=== PATIENT | female | born 1980 | race Hispanic/Latino ===

== ENCOUNTER 2017-03-06 21:41 | Emergency (ER) | payer OTHER ==
[2017-03-06 21:44] VITALS: BMI 23.9
[2017-03-06 21:49] VITALS: RESP 16; TEMP 98.6; O2SAT 100
--- NOTE | 2017-03-06 22:08 | ED PDOC ---
Arrival/HPI - General Chief Complaint: Needle Stick Time Seen by Provider: 03/06/17 21:45 Historian: Patient - History of Present Illness Narrative History of Present Illness (Text): 03/06/17 22:00 Jennifer Lockhart is a 37 year old female who presents to the Emergency department complaining of a needlestick to the left great toe while at work today. Patient denies any weakness/numbness/tingling in the extremity, redness/ swelling to the area, or any other complaints. Patient states tetanus is up to date. Time/Duration: Other (today) Symptom Course: Unchanged Activities at Onset: Light Context: Work Past Medical History - Provider Review Nursing Documentation Reviewed: Yes - Reproductive Menopause: No - Cardiac Hx Cardiac Disorders: No - Pulmonary Hx Respiratory Disorders: No - Neurological Hx Neurological Disorder: No - HEENT Hx HEENT Disorder: No - Renal Hx Renal Disorder: No - Endocrine/Metabolic Hx Hypothyroidism: Yes - Hematological/Oncological Hx Blood Disorders: No - Integumentary Hx Dermatological Disorder: No - Musculoskeletal/Rheumatological Hx Musculoskeletal Disorders: No - Gastrointestinal Hx Gastrointestinal Disorders: Yes - Genitourinary/Gynecological Other/Comment: endometriosis - Psychiatric Hx Psychophysiologic Disorder: No Hx Substance Use: No - Surgical History Hx Section: Yes (2011) Hx Tonsillectomy: Yes (2006) Other/Comment: laparoscopy 2006 - Anesthesia Hx Anesthesia: No Hx Anesthesia Reactions: No Hx Malignant Hyperthermia: No Family/Social History - Physician Review Nursing Documentation Reviewed: Yes Family/Social History: No Known Family HX Smoking Status: Never Smoked Hx Alcohol Use: Yes Frequency of alcohol use: Socially Hx Substance Use: No Allergies/Home Meds Allergies/Adverse Reactions: Allergies Penicillins Adverse Reaction (Verified 03/06/17 22:02) ANAPHYLAXIS Review of Systems - Physician Review All systems were reviewed & negative as marked: Yes - Review of Systems Constitutional: Normal. absent: Fevers Eyes: Normal ENT: Normal Respiratory: Normal. absent: SOB, Cough Cardiovascular: Normal. absent: Chest Pain Gastrointestinal: Normal. absent: Abdominal Pain, Diarrhea, Nausea, Vomiting Genitourinary Female: Normal. absent: Dysuria, Frequency, Hematuria, Urine Output Changes Musculoskeletal: Normal. absent: Back Pain, Neck Pain Skin: Other (+needlestick) Neurological: Normal. absent: Headache, Dizziness Endocrine: Normal Hemo/Lymphatic: Normal Psychiatric: Normal Physical Exam Vital Signs Reviewed: Yes Vital Signs Temp Pulse Resp BP Pulse Ox 03/06/17 22:18 64 16 112/70 100 03/06/17 21:44 98.6 F 80 16 110/70 100 Temperature: Afebrile Blood Pressure: Normal Pulse: Regular Respiratory Rate: Normal Appearance: Positive for: Well-Appearing, Non-Toxic, Comfortable Pain Distress: None Mental Status: Positive for: Alert and Oriented X 3 - Systems Exam Head: Present: Atraumatic, Normocephalic Pupils: Present: PERRL Extroacular Muscles: Present: EOMI Conjunctiva: Present: Normal Upper Extremity: Present: Normal Inspection. No: Cyanosis, Edema Lower Extremity: Present: NORMAL PULSES, Normal ROM, Neurovascularly Intact, Capillary Refill < 2 s, Other (No wound noted to left great toe). No: Edema, Tenderness, Swelling, Erythema Neurological: Present: GCS=15, CN II-XII Intact, Speech Normal Skin: Present: Warm, Dry, Normal Color. No: Rashes Psychiatric: Present: Alert, Oriented x 3, Normal Insight, Normal Concentration Medical Decision Making ED Course and Treatment: 03/06/17 22:00 Impression: 37 year old female complaining of left great toe needlestick. Plan: -- Hepatitis panel -- Reassess and disposition Progress Notes: No wound noted to left great toe. Reports tetanus vaccinations are up to date. Pt refused HIV panel and hepatitis prophylaxis. Hepatitis panel ordered. - Scribe Statement The provider has reviewed the documentation as recorded by the Scribe Monserrat Campos All medical record entries made by the Scribe were at my direction and personally dictated by me. I have reviewed the chart and agree that the record accurately reflects my personal performance of the history, physical exam, medical decision making, and the department course for this patient. I have also personally directed, reviewed, and agree with the discharge instructions and disposition. Disposition/Present on Arrival - Present on Arrival Any Indicators Present on Arrival: No History of DVT/PE: No History of Uncontrolled Diabetes: No Urinary Catheter: No History of Decub. Ulcer: No History Surgical Site Infection Following: None - Disposition Have Diagnosis and Disposition been Completed?: Yes Diagnosis: Needle stick injury Disposition: HOME/ ROUTINE Disposition Time: 22:30 Condition: GOOD Discharge Instructions (ExitCare): Needle Stick Injuries (ED) Additional Instructions: follow up with employee health Referrals: Dillon Villegas MD [Primary Care Provider] - Follow up with primary
[2017-03-06 22:20] VITALS: BP 112/70; PULSE 64
== END 2017-03-06 22:18 | disposition home or self-care (01) ==
LOC: ED 21:41
DX: S99.922A Unspecified injury of left foot, initial encounter (principal); W46.0XXA Contact with hypodermic needle, initial encounter; Y92.9 Unspecified place or not applicable; Y99.0 Civilian activity done for income or pay; E03.9 Hypothyroidism, unspecified; Z88.0 Allergy status to penicillin

== ENCOUNTER 2017-06-12 19:38 | Emergency (ER) | payer OTHER ==
[2017-06-12 19:46] VITALS: RESP 16; TEMP 97.9; O2SAT 100; BMI 24.7
[2017-06-12] MEDS ORDERED: DiphenhydrAMINE 50 mg/ml Inj IVP ONE (19:50)
[2017-06-12] MEDS ORDERED: Sodium Chloride 0.9% 1,000 ML IV SCH (20:00)
[2017-06-12] MEDS ORDERED: HYDROmorphone 1 mg/ml ISec IVP STA (20:46)
--- NOTE | 2017-06-12 21:06 | ED PDOC ---
Arrival/HPI - General Chief Complaint: Headache Time Seen by Provider: 06/12/17 19:38 Historian: Patient - History of Present Illness Narrative History of Present Illness (Text): 06/12/17 19:50 Jnenifer Lockhart is a 37 year old female who presents to the Emergency department complaining of migraine headache since yesterday. Patient reports associated nausea and vomiting. Patient denies any dizziness, vision changes, focal weakness, diarrhea, urinary symptoms, back pain, neck pain, or any other complaints. Time/Duration: Other (yesterday) Symptom Onset: Gradual Symptom Course: Unchanged Activities at Onset: Light Context: Home Past Medical History - Provider Review Nursing Documentation Reviewed: Yes - Infectious Disease Hx of Infectious Diseases: None - Reproductive Menopause: No - Cardiac Hx Cardiac Disorders: No - Pulmonary Hx Respiratory Disorders: No - Neurological Hx Neurological Disorder: No - HEENT Hx HEENT Disorder: No - Renal Hx Renal Disorder: No - Endocrine/Metabolic Hx Hypothyroidism: Yes - Hematological/Oncological Hx Blood Disorders: No - Integumentary Hx Dermatological Disorder: No - Musculoskeletal/Rheumatological Hx Musculoskeletal Disorders: No - Gastrointestinal Hx Gastrointestinal Disorders: Yes - Genitourinary/Gynecological Other/Comment: endometriosis - Psychiatric Hx Psychophysiologic Disorder: No Hx Substance Use: No - Surgical History Hx Section: Yes (2011) Hx Tonsillectomy: Yes (2006) Other/Comment: laparoscopy 2005 - Anesthesia Hx Anesthesia: No Hx Anesthesia Reactions: No Hx Malignant Hyperthermia: No Family/Social History - Physician Review Nursing Documentation Reviewed: Yes Family/Social History: Unknown Family HX Smoking Status: Never Smoked Hx Alcohol Use: Yes Hx Substance Use: No Allergies/Home Meds Allergies/Adverse Reactions: Allergies Penicillins Adverse Reaction (Verified 03/06/17 22:02) ANAPHYLAXIS Home Medications: Home Meds Medication Instructions Recorded Confirmed Levothyroxine Sodium [Unithroid] 150 mcg PO DAILY 06/12/17 06/12/17 Review of Systems - Physician Review All systems were reviewed & negative as marked: Yes - Review of Systems Constitutional: Normal. absent: Fevers Eyes: Normal. absent: Vision Changes ENT: Normal Respiratory: Normal. absent: SOB, Cough Cardiovascular: Normal. absent: Chest Pain Gastrointestinal: Nausea, Vomiting. absent: Abdominal Pain, Diarrhea Genitourinary Female: Normal. absent: Dysuria, Frequency, Hematuria, Urine Output Changes Musculoskeletal: Normal. absent: Back Pain, Neck Pain Skin: Normal. absent: Rash Neurological: Headache. absent: Dizziness, Focal Weakness Endocrine: Normal Hemo/Lymphatic: Normal Psychiatric: Normal Physical Exam Vital Signs Reviewed: Yes Vital Signs Temp Pulse Resp BP Pulse Ox 06/12/17 19:38 97.9 F 92 H 16 124/94 H 100 Temperature: Afebrile Blood Pressure: Normal Pulse: Regular Respiratory Rate: Normal Appearance: Positive for: Well-Appearing, Non-Toxic, Comfortable Pain Distress: None Mental Status: Positive for: Alert and Oriented X 3 - Systems Exam Head: Present: Atraumatic, Normocephalic Pupils: Present: PERRL Extroacular Muscles: Present: EOMI Conjunctiva: Present: Normal Mouth: Present: Moist Mucous Membranes Neck: Present: Normal Range of Motion. No: Meningeal Signs, MIDLINE TENDERNESS , Paraspinal Tenderness Respiratory/Chest: Present: Clear to Auscultation, Good Air Exchange. No: Respiratory Distress, Accessory Muscle Use Cardiovascular: Present: Regular Rate and Rhythm, Normal S1, S2. No: Murmurs Upper Extremity: Present: Normal Inspection. No: Cyanosis, Edema Lower Extremity: Present: Normal Inspection. No: Edema Neurological: Present: GCS=15, CN II-XII Intact, Speech Normal, Motor Func Grossly Intact, Normal Cerebellar Funct, Norm Deep Tendon Reflexes, Memory Normal Skin: Present: Warm, Dry, Normal Color. No: Rashes Psychiatric: Present: Alert, Oriented x 3, Normal Insight, Normal Concentration Medical Decision Making ED Course and Treatment: 06/12/17 19:50 Impression: 37 year old female complaining of migraine headache yesterday. Differential Diagnosis included but are not limited to: migraines Plan: -- Benadryl -- Reglan -- IV fluids -- Reassess and disposition Progress Notes: 06/12/17 23:46 On reevaluation the patient feels better and is in no acute distress. I have discussed the results and plan with the patient, who expresses understanding. Patient given the opportunity to ask question, all questions were answered and there is agreement with the plan to discharge the patient home. Patient is stable for discharge. Patient was instructed to follow up with physician/clinic in 1-2 days or return if symptoms persist/worsen or new concerning symptoms arise. Re-evaluation Time: 23:46 Reassessment Condition: Re-examined, Improved - Medication Orders Current Medication Orders: Sodium Chloride (Sodium Chloride 0.9%) 1,000 mls @ 80 mls/hr IV .[id number] HANANE Last Admin: 06/12/17 20:05 Dose: 80 mls/hr Discontinued Medications Diphenhydramine HCl (Benadryl) 25 mg IVP ONCE ONE Stop: 06/12/17 19:51 Last Admin: 06/12/17 20:05 Dose: 25 mg Hydromorphone HCl (Dilaudid) 1 mg IVP STAT STA Stop: 06/12/17 20:47 Last Admin: 06/12/17 21:16 Dose: 1 mg Metoclopramide HCl (Reglan) 10 mg IVP ONCE ONE Stop: 06/12/17 19:51 Last Admin: 06/12/17 20:05 Dose: 10 mg - Scribe Statement The provider has reviewed the documentation as recorded by the Jakyibprabhakar Campos All medical record entries made by the Jakyibprabhakar were at my direction and personally dictated by me. I have reviewed the chart and agree that the record accurately reflects my personal performance of the history, physical exam, medical decision making, and the department course for this patient. I have also personally directed, reviewed, and agree with the discharge instructions and disposition. Disposition/Present on Arrival - Present on Arrival Any Indicators Present on Arrival: No History of DVT/PE: No History of Uncontrolled Diabetes: No Urinary Catheter: No History of Decub. Ulcer: No History Surgical Site Infection Following: None - Disposition Have Diagnosis and Disposition been Completed?: Yes Diagnosis: Migraine Disposition: HOME/ ROUTINE Disposition Time: 23:46 Patient Problems: Current Active Problems Problem Status Onset Migraine Acute Condition: GOOD Discharge Instructions (ExitCare): Migraine Headache (ED) Forms: [employer] ([employer]) ([place]ayan)
[2017-06-13 04:00] VITALS: BP 126/85; PULSE 84
== END 2017-06-13 00:05 | disposition home or self-care (01) ==
LOC: ED 19:38
DX: G43.909 Migraine, unspecified, not intractable, without status migrainosus (principal)
CPT/HCPCS: 96361; 96374; 96375; 99285; J1170; J1200; J2765; J7040

== ENCOUNTER 2017-12-10 11:50 | Emergency (ER) | payer OTHER ==
[2017-12-10 11:50] VITALS: BMI 24.7
[2017-12-10] MEDS ORDERED: Sodium Chloride 0.9% 1,000 ML IV STA (12:08)
[2017-12-10] MEDS ORDERED: Morphine 2 mg/ml ISec IVP STA (12:08)
--- NOTE | 2017-12-10 12:10 | ED PDOC ---
Arrival/HPI - General Chief Complaint: Headache Time Seen by Provider: 12/10/17 12:07 Historian: Patient - History of Present Illness Narrative History of Present Illness (Text): 12/10/17 12:12 Jennifer Lockhart is a 37 year old female, whose past medical history includes photophobia, hypothyroidism, and endometriosis, who presents to the emergency department complaining of a typical migraine headache since yesterday. Patient notes this is not her worst headache. Patient denies any fever, neck pain, back pain, chest pain or any other complaints. Time/Duration: Other (yesterday) Symptom Onset: Gradual Symptom Course: Unchanged Activities at Onset: Light Context: Home Past Medical History - Provider Review Nursing Documentation Reviewed: Yes - Infectious Disease Hx of Infectious Diseases: None - Cardiac Hx Cardiac Disorders: No - Pulmonary Hx Respiratory Disorders: No - Neurological Hx Neurological Disorder: No - HEENT Hx HEENT Disorder: No - Renal Hx Renal Disorder: No - Endocrine/Metabolic Hx Hypothyroidism: Yes - Hematological/Oncological Hx Blood Disorders: No - Integumentary Hx Dermatological Disorder: No - Musculoskeletal/Rheumatological Hx Musculoskeletal Disorders: No - Gastrointestinal Hx Gastrointestinal Disorders: Yes - Genitourinary/Gynecological Other/Comment: endometriosis - Psychiatric Hx Psychophysiologic Disorder: No Hx Substance Use: No - Surgical History Hx Section: Yes (2011) Hx Tonsillectomy: Yes (2006) Other/Comment: laparoscopy 2005 - Anesthesia Hx Anesthesia: No Hx Anesthesia Reactions: No Hx Malignant Hyperthermia: No Family/Social History - Physician Review Nursing Documentation Reviewed: Yes Family/Social History: Unknown Family HX Smoking Status: Never Smoked Hx Alcohol Use: Yes Hx Substance Use: No Allergies/Home Meds Allergies/Adverse Reactions: Allergies Penicillins Adverse Reaction (Verified 03/06/17 22:02) ANAPHYLAXIS Home Medications: Home Meds Medication Instructions Recorded Confirmed Levothyroxine Sodium [Unithroid] 150 mcg PO DAILY 06/12/17 12/10/17 Codeine/Butalbital/ASA/Caffein 30 mg PO PRN PRN 12/10/17 12/10/17 [Fiorinal with Codeine #3 Cap] Review of Systems - Physician Review All systems were reviewed & negative as marked: Yes - Review of Systems Constitutional: Normal Eyes: Photophobia ENT: Normal Respiratory: Normal. absent: SOB, Cough Cardiovascular: Normal. absent: Chest Pain, Palpitations Gastrointestinal: Normal. absent: Abdominal Pain, Diarrhea, Nausea, Vomiting Genitourinary Female: Normal. absent: Dysuria, Frequency, Hematuria, Urine Output Changes Musculoskeletal: Normal. absent: Back Pain, Neck Pain Skin: Normal. absent: Rash Neurological: Headache. absent: Dizziness Endocrine: Normal Hemo/Lymphatic: Normal Psychiatric: Normal Physical Exam Vital Signs Reviewed: Yes Vital Signs Temp Pulse Resp BP Pulse Ox 12/10/17 13:27 101/55 L 12/10/17 12:26 97.9 F 77 18 122/90 99 Temperature: Afebrile Blood Pressure: Normal Pulse: Regular Respiratory Rate: Normal Appearance: Positive for: Well-Appearing, Non-Toxic, Comfortable Pain Distress: None Mental Status: Positive for: Alert and Oriented X 3 - Systems Exam Head: Present: Atraumatic, Normocephalic Pupils: Present: PERRL Extroacular Muscles: Present: EOMI Conjunctiva: Present: Normal Mouth: Present: Moist Mucous Membranes Neck: Present: Normal Range of Motion. No: Meningeal Signs, MIDLINE TENDERNESS , Paraspinal Tenderness Respiratory/Chest: Present: Clear to Auscultation, Good Air Exchange. No: Respiratory Distress, Accessory Muscle Use, Wheezes Cardiovascular: Present: Regular Rate and Rhythm, Normal S1, S2. No: Murmurs Abdomen: Present: Normal Bowel Sounds. No: Tenderness, Distention, Peritoneal Signs Back: Present: Normal Inspection. No: CVA Tenderness, Midline Tenderness, Paraspinal Tenderness Upper Extremity: Present: Normal Inspection. No: Cyanosis, Edema Lower Extremity: Present: Normal Inspection. No: Edema Neurological: Present: GCS=15, CN II-XII Intact, Speech Normal Skin: Present: Warm, Dry, Normal Color. No: Rashes Psychiatric: Present: Alert, Oriented x 3, Normal Insight, Normal Concentration Medical Decision Making ED Course and Treatment: 12/10/17 12:18 Impression: 37 year old female presents to the ed complaining of headache since yesterday. Plan: -- Reglan -- Morphine -- Sodium Chloride -- Reassess and disposition Prior Visits: Notes and results from previous visits were reviewed. Patient presented to the emergency department on 06/12/17 complaining of a headache. Patient was discharged home. 12/10/17 13:29 Re-evaluation: On reevaluation the patient feels better and is in no acute distress. I have discussed the results and plan with the patient, who expresses understanding. Patient given the opportunity to ask question, all questions were answered and there is agreement with the plan to discharge the patient home. Patient is stable for discharge. Patient was instructed to follow up with physician/clinic in 1-2 days or return if symptoms persist/worsen or new concerning symptoms arise. - Medication Orders Current Medication Orders: Discontinued Medications Sodium Chloride (Sodium Chloride 0.9%) 1,000 mls @ 999 mls/hr IV .[id number] STA Stop: 12/10/17 13:08 Last Admin: 12/10/17 12:45 Dose: 999 mls/hr eMAR Start Stop Document 12/10/17 12:45 MS (Rec: 12/10/17 12:45 MS [id number]) Intravenous Solution Start Date 12/10/17 Start Time 12:45 End Date 12/10/17 End time 13:45 Total Infusion Time 60 Metoclopramide HCl (Reglan) 20 mg IVPB STAT STA Stop: 12/10/17 12:09 Last Admin: 12/10/17 12:44 Dose: 20 mg eMAR Start Stop Document 12/10/17 12:44 MS (Rec: 12/10/17 12:44 MS [id number]) Intravenous Solution Start Date 12/10/17 Start Time 12:44 End Date 12/10/17 End time 13:44 Total Infusion Time 60 Morphine Sulfate (Morphine) 2 mg IVP STAT STA Stop: 12/10/17 12:09 Last Admin: 12/10/17 12:43 Dose: 2 mg MAR Pain Assessment Document 12/10/17 12:43 MS (Rec: 12/10/17 12:44 MS [id number]) Pain Reassessment Is this a pain reassessment? No Sleep Is patient sleeping during reassessment? 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 I have reviewed the chart and agree that the record accurately reflects my personal performance of the history, physical exam, medical decision making, and the department course for this patient. I have also personally directed, reviewed, and agree with the discharge instructions and disposition. Disposition/Present on Arrival - Present on Arrival Any Indicators Present on Arrival: No History of DVT/PE: No History of Uncontrolled Diabetes: No Urinary Catheter: No History of Decub. Ulcer: No History Surgical Site Infection Following: None - Disposition Have Diagnosis and Disposition been Completed?: Yes Diagnosis: Migraine Disposition: HOME/ ROUTINE Disposition Time: 13:20 Condition: IMPROVED Discharge Instructions (ExitCare): Migraine Headaches in Adults Additional Instructions: Thank you for letting us take care of you today. The emergency medical care you received today was directed at your acute symptoms. If you were prescribed any medication, please fill it and take as directed. It may take several days for your symptoms to resolve. Return to the Emergency Department if your symptoms worsen, do not improve, or if you have any other problems. Please contact your doctor or call one of the physicians/clinics you have been referred to that are listed on the Patient Visit Information form that is included in your discharge packet. Bring any paperwork you were given at discharge with you along with any medications you are taking to your follow up visit. Our treatment cannot replace ongoing medical care by a primary care provider (PCP) outside of the emergency department. Thank you for allowing the [facility] team to be part of your care today. Follow up with your doctor this week for re-evaluation. Referrals: Dillon Villegas MD [Primary Care Provider] - Follow up with primary Forms: [employer] ([place])
[2017-12-10 13:27] VITALS: BP 101/55; PULSE 77; RESP 18; TEMP 97.9; O2SAT 99
== END 2017-12-10 13:30 | disposition home or self-care (01) ==
LOC: ED 11:50
DX: G43.909 Migraine, unspecified, not intractable, without status migrainosus (principal); E03.9 Hypothyroidism, unspecified
CPT/HCPCS: 96365; 96375; 99285; J2270; J2765; J7040

== ENCOUNTER 2018-01-01 23:37 | Emergency (ER) | payer OTHER ==
[2018-01-01 23:38] VITALS: BMI 24.7
[2018-01-01] MEDS ORDERED: DiphenhydrAMINE 50 mg/ml Inj IVP STA (23:53)
[2018-01-01] MEDS ORDERED: Sodium Chloride 0.9% 1,000 ML IV STA (23:55)
[2018-01-02] MEDS ORDERED: Morphine 4 mg/ml ISec IVP STA (00:34)
--- NOTE | 2018-01-02 01:01 | ED PDOC ---
Arrival/HPI <YolisRaul - Last Filed: 01/02/18 02:03> - General Historian: Patient - History of Present Illness Time/Duration: 4-6 hours Symptom Onset: Gradual Symptom Course: Worsening Quality: Aching, Burning Activities at Onset: Rest <RamanaPeter - Last Filed: 01/02/18 04:00> - General Chief Complaint: Abdominal Pain Time Seen by Provider: 01/01/18 23:53 - History of Present Illness Narrative History of Present Illness (Text): 01/02/18 00:55 Patient is a 38F with a PMH of endometriosis, migraines and GERD who comes to the ED with a CC of VASQUEZ, abdominal pain and vomiting. Patient states she has felt this way since 3 pm. Turning off the lights makes the headache better. Takes fioricet at home that usually helps the headache but did not help today. Denies any blood in the vomit. Describes the pain in her belly as burning and located in the epigastrum and radiates to the left flank. Pain has been constant since its onset. Patient was seen at [facility] earlier tonight, they gave her medication for the pain but did not draw labs. Denies any previous episodes like this. Denies chest pain, SOB, LOC, fever, chills, diarrhea. (Peter Boles) Past Medical History - Provider Review Nursing Documentation Reviewed: Yes <YolisRaul - Last Filed: 01/02/18 02:03> - Infectious Disease Hx of Infectious Diseases: None - Cardiac Hx Cardiac Disorders: No - Pulmonary Hx Respiratory Disorders: No - Neurological Hx Neurological Disorder: No - HEENT Hx HEENT Disorder: No - Renal Hx Renal Disorder: No - Endocrine/Metabolic Hx Hypothyroidism: Yes - Hematological/Oncological Hx Blood Disorders: No - Integumentary Hx Dermatological Disorder: No - Musculoskeletal/Rheumatological Hx Musculoskeletal Disorders: No - Gastrointestinal Hx Gastrointestinal Disorders: Yes - Genitourinary/Gynecological Other/Comment: endometriosis - Psychiatric Hx Psychophysiologic Disorder: No Hx Substance Use: No - Surgical History Hx Section: Yes (2011) Hx Tonsillectomy: Yes (2006) Other/Comment: laparoscopy 2006 - Anesthesia Hx Anesthesia: No Hx Anesthesia Reactions: No Hx Malignant Hyperthermia: No <Peter Boles - Last Filed: 01/02/18 04:00> Family/Social History - Physician Review Nursing Documentation Reviewed: Yes Family/Social History: Unknown Family HX <Raul Lagos - Last Filed: 01/02/18 02:03> Family/Social History: Unknown Family HX Smoking Status: Never Smoked Hx Alcohol Use: Yes Hx Substance Use: No <Peter Boles Last Filed: 01/02/18 04:00> Allergies/Home Meds <Rual Lagos - Last Filed: 01/02/18 02:03> <Peter Boles Last Filed: 01/02/18 04:00> Allergies/Adverse Reactions: Allergies Penicillins Adverse Reaction (Verified 01/01/18 23:52) ANAPHYLAXIS Review of Systems - Physician Review All systems were reviewed & negative as marked: Yes <Raul Lagos Last Filed: 01/02/18 02:03> - Review of Systems Constitutional: absent: Fevers, Night Sweats Eyes: Photophobia. absent: Vision Changes ENT: Normal Respiratory: Normal Cardiovascular: absent: Chest Pain, Syncope Gastrointestinal: Abdominal Pain, Diarrhea, Nausea, Vomiting. absent: Constipation, Hematemesis Genitourinary Female: Normal Musculoskeletal: Normal Skin: Normal Neurological: Headache Endocrine: Normal Hemo/Lymphatic: Normal Psychiatric: Normal <Peter Boles Last Filed: 01/02/18 04:00> Physical Exam Temperature: Afebrile Blood Pressure: Normal Pulse: Regular Respiratory Rate: Normal Appearance: Positive for: Uncomfortable Pain Distress: Moderate Mental Status: Positive for: Alert and Oriented X 3 - Systems Exam Head: Present: Atraumatic, Normocephalic Pupils: Present: PERRL Extroacular Muscles: Present: EOMI Conjunctiva: Present: Normal Mouth: Present: Moist Mucous Membranes Respiratory/Chest: Present: Clear to Auscultation, Good Air Exchange. No: Respiratory Distress, Accessory Muscle Use Cardiovascular: Present: Regular Rate and Rhythm, Normal S1, S2. No: Murmurs Abdomen: Present: Normal Bowel Sounds. No: Tenderness, Distention, Peritoneal Signs Upper Extremity: Present: Normal Inspection. No: Cyanosis, Edema Lower Extremity: Present: Normal Inspection. No: Edema Neurological: Present: GCS=15, CN II-XII Intact, Speech Normal Skin: Present: Warm, Dry, Normal Color. No: Rashes Psychiatric: Present: Alert, Oriented x 3 <Peter Boles - Last Filed: 01/02/18 04:00> Vital Signs Temp Pulse Resp BP Pulse Ox 01/02/18 00:08 98.1 F 90 17 125/75 96 01/01/18 23:49 98.1 F 81 17 100 Medical Decision Making <Raul Lagos - Last Filed: 01/02/18 02:03> <Peter Boles - Last Filed: 01/02/18 04:00> ED Course and Treatment: Impression: Pt seen and evaluated with medical record transcriber. Pt, whose past medical history includes endometriosis and migraines, presented for headache, abdominal pain, and vomiting. Aware and agree with HPI, clinical findings, plan, and management. Plan: -- Labs -- Urinalysis -- IV fluids -- Reglan -- Pepcid -- Benadryl -- Morphine -- Reassess and disposition (Raul Lagos) 01/02/18 01:26 Patient presents with nausea, migraine and abdominal pain Relgan, benadryl, morphine, pepcid Labs 01/02/18 03:53 GB US negative for acute damir Patient feeling much better, pain resolved, no longer nausea stable for D/c, follow up with sole tier, patient states she has an appt set up (Peter Boles) - Lab Interpretations Lab Results: 01/02/18 00:20 01/02/18 00:20 Lab Results 01/02/18 00:20: Sodium 138, Potassium 3.8, Chloride 100, Carbon Dioxide 30, Anion Gap 12, BUN 13, Creatinine 0.8, Est GFR ( Amer) > 60, Est GFR (Non- Af Amer) > 60, Random Glucose 114 H, Calcium 9.5, Magnesium 2.5 H, Total Bilirubin 0.7, AST 27, ALT 28, Alkaline Phosphatase 63, Total Protein 7.7, Albumin 4.2, Globulin 3.4, Albumin/Globulin Ratio 1.2 01/02/18 00:20: WBC 7.2, RBC 4.53, Hgb 13.6, Hct 40.2, MCV 88.7 D, MCH 30.0, MCHC 33.8, RDW 12.7, Plt Count 189, MPV 11.4 H, Gran % 78.0 H, Lymph % (Auto) 9.7 L, [place] % (Auto) 10.7 H, Eos % (Auto) 1.5, Baso % (Auto) 0.1, Gran # 5.61, Lymph # (Auto) 0.7 L, [place] # (Auto) 0.8 H, Eos # (Auto) 0.1, Baso # (Auto) 0.01 - RAD Interpretation Radiology Orders: 01/02/18 01:36 GALL BLADDER [US] Stat - Medication Orders Current Medication Orders: Discontinued Medications Diphenhydramine HCl (Benadryl) 50 mg IVP STAT STA Stop: 01/01/18 23:54 Last Admin: 01/02/18 00:28 Dose: 50 mg IVP Administration Document 01/02/18 00:28 Danielle (Rec: 01/02/18 00:28 [id number] Charges for Administration # of IVP Administrations 1 Famotidine (Pepcid) 20 mg IVP STAT STA Stop: 01/01/18 23:54 Last Admin: 01/02/18 00:29 Dose: 20 mg IVP Administration Document 01/02/18 00:29 Danielle (Rec: 01/02/18 00:29 [id number] Charges for Administration # of IVP Administrations 1 Sodium Chloride (Sodium Chloride 0.9%) 1,000 mls @ 999 mls/hr IV .Q1H1M STA Stop: 01/02/18 00:55 Last Admin: 01/02/18 00:29 Dose: 999 mls/hr eMAR Start Stop Document 01/02/18 00:29 Danielle (Rec: 01/02/18 00:29 [id number] Intravenous Solution Start Date 01/02/18 Start Time 00:29 Metoclopramide HCl (Reglan) 10 mg IVP STAT STA Stop: 01/01/18 23:54 Last Admin: 01/02/18 00:28 Dose: 10 mg IVP Administration Document 01/02/18 00:28 Danielle (Rec: 01/02/18 00:28 [id number]) Charges for Administration # of IVP Administrations 1 Morphine Sulfate (Morphine) 4 mg IVP STAT STA Stop: 01/02/18 00:35 Last Admin: 01/02/18 01:07 Dose: 4 mg MAR Pain Assessment Document 01/02/18 01:07 [facility] (Rec: 01/02/18 01:07 [facility] [id number]) Pain Reassessment Is this a pain reassessment? No Sleep Is patient sleeping during reassessment? No Presence of Pain Presence of Pain Yes Pain Scale Used Pain Scale Used Numeric Location Pain Location Body Site Abdomen Description Description Sharp Intensity of Pain at present 10 Acceptable Level of Pain 0 Pain Behavior Irritability Rubbing Site Aggravating Factors ADL's IVP Administration Document 01/02/18 01:07 [facility] (Rec: 01/02/18 01:07 [facility] [id number]) Charges for Administration # of IVP Administrations 1 - PA / PANEL FITTER / Resident Statement / has reviewed & agrees with the documentation as recorded. / has examined the patient and agrees with the treatment plan. <Peter Boles - Last Filed: 01/02/18 04:00> Disposition/Present on Arrival <Raul Lagos - Last Filed: 01/02/18 02:03> - Present on Arrival Any Indicators Present on Arrival: No History of DVT/PE: No History of Uncontrolled Diabetes: No Urinary Catheter: No History of Decub. Ulcer: No History Surgical Site Infection Following: None - Disposition Have Diagnosis and Disposition been Completed?: Yes Disposition Time: 03:54 Patient Plan: Discharge <Peter Boles - Last Filed: 01/02/18 04:00> - Disposition Diagnosis: Gastritis, Migraine Disposition: HOME/ ROUTINE Condition: STABLE Additional Instructions: Please follow up with your primary care provider w/in one week please follow up with sole tier. Keep your upcoming appointment Please follow up with your neurologist for Migraine Please take Reglan w/ Benadryl for persistent migraine Please take Pepcid as prescribed for GERD symptoms. Prescriptions: Famotidine [Pepcid] 20 mg PO DAILY #30 tab Referrals: Dillon Villegas MD [Primary Care Provider] - Follow up with primary Forms: [employer] (Cymro)
[2018-01-02 01:13] LABS: BASO # 0.01 K/mm3 (0.0-2.0); BASO % 0.1 % (0.0-3.0); EOS # 0.1 (0.0-0.7); EOS % 1.5 % (1.5-5.0); GRAN # 5.61 (1.4-6.5); HEMOGLOBIN 13.6 g/dL (12.0-16.0); LYMPH # 0.7 (1.2-3.4); LYMPH % 9.7 % (22.0-35.0); MEAN CORPUSCULAR HGB CONC 33.8 g/dl (31.0-37.0); MEAN PLATELET VOLUME 11.4 fl (7.0-11.0); MONO # 0.8 (0.1-0.6); MONO % 10.7 % (1.0-6.0); RBC 4.53 10^6/uL (3.5-6.1); RED CELL DISTRIBUTION WIDTH 12.7 % (11.5-14.5); WHITE BLOOD COUNT 7.2 10^3/ul (4.5-11.0)
[2018-01-02 01:15] LABS: MEAN CELL VOLUME 88.7 fl (80.0-105.0)
[2018-01-02 01:46] LABS: ALB/GLOB RATIO 1.2 (1.1-1.8); ALBUMIN 4.2 g/dL (3.0-4.8); ALT/SGPT 28 U/L (7-56); AST/SGOT 27 U/L (14-36); BLOOD UREA NITROGEN 13 mg/dL (7-21); CALCIUM 9.5 mg/dL (8.4-10.5); GFR AFRICAN-AMERICAN > 60; GFR NON-AFRICAN AMERICAN > 60
--- NOTE | 2018-01-02 03:36 | US ---
EXAM: US Abdomen Limited, Right Upper Quadrant CLINICAL HISTORY: 38 years old, female; Pain; Abdominal pain; Generalized; Additional info: Ruq pain TECHNIQUE: Real-time ultrasound of the right upper quadrant with image documentation. COMPARISON: No relevant prior studies available. FINDINGS: Liver: Normal echogenicity. No mass. No intrahepatic bile duct dilatation. Gallbladder: No gallstones. No wall thickening. No pericholecystic fluid. No sonographic Butcher's sign. Common bile duct: No dilatation. No stones. Pancreas: Unremarkable as visualized. Right kidney: Normal echogenicity. No hydronephrosis. IMPRESSION: 1.No acute findings.
[2018-01-02 04:18] VITALS: RESP 18; O2SAT 97
[2018-01-02 04:19] VITALS: BP 119/73; PULSE 77; TEMP 98.3
== END 2018-01-02 04:22 | disposition home or self-care (01) ==
LOC: ED 23:37
DX: K29.70 Gastritis, unspecified, without bleeding (principal); G43.909 Migraine, unspecified, not intractable, without status migrainosus
CPT/HCPCS: 76705; 80053; 83735; 85025; 96361; 96374; 96375; 99285; J1200; J2270; J2765; J7040

== ENCOUNTER 2018-08-15 15:45 | Emergency (ER) | payer OTHER ==
[2018-08-15 15:48] VITALS: RESP 17; O2SAT 100; BMI 25.2
--- NOTE | 2018-08-15 16:51 | ED PDOC ---
Arrival/HPI - General Chief Complaint: Back Pain Time Seen by Provider: 08/15/18 15:49 Historian: Patient - History of Present Illness Narrative History of Present Illness (Text): 08/15/18 18:22 38-year-old female presents today with left-sided back pain status post injury. 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 Incident occurred prior to arrival. Patient denies numbness or tingling in the extremity. Patient describes a shooting pain in the low back radiating into the left hip. She denies bladder or bowel incontinence. Patient states she also has some pain in the left upper back which she describes as a achy pain. No medications were taken for pain. No other complaints Past Medical History - Provider Review Nursing Documentation Reviewed: Yes - Travel History Have you recently traveled outside [place] w/in the past 3 mons?: No - Infectious Disease Hx of Infectious Diseases: None - Cardiac Hx Cardiac Disorders: No - Pulmonary Hx Respiratory Disorders: No - Neurological Hx Neurological Disorder: Yes Hx Migraine: Yes - HEENT Hx HEENT Disorder: No - Renal Hx Renal Disorder: No - Endocrine/Metabolic Hx Endocrine Disorders: Yes Hx Hypothyroidism: Yes - Hematological/Oncological Hx Blood Disorders: No - Integumentary Hx Dermatological Disorder: No - Musculoskeletal/Rheumatological Hx Musculoskeletal Disorders: No - Gastrointestinal Hx Gastrointestinal Disorders: Yes Hx Gastroesophageal Reflux: Yes - Genitourinary/Gynecological Hx Genitourinary Disorders: Yes Other/Comment: endometriosis - Psychiatric Hx Psychophysiologic Disorder: No Hx Substance Use: No - Surgical History Hx Section: Yes (2011) Hx Tonsillectomy: Yes (2006) Other/Comment: laparoscopy 2006 - Anesthesia Hx Anesthesia: No Hx Anesthesia Reactions: No Hx Malignant Hyperthermia: No Family/Social History - Physician Review Nursing Documentation Reviewed: Yes Family/Social History: Unknown Family HX Smoking Status: Never Smoked Hx Alcohol Use: Yes Hx Substance Use: No Allergies/Home Meds Allergies/Adverse Reactions: Allergies Penicillins Adverse Reaction (Verified 08/15/18 15:47) ANAPHYLAXIS Home Medications: Home Meds Medication Instructions Recorded Confirmed Levothyroxine [Synthroid] 112 mcg PO DAILY 08/15/18 08/15/18 Review of Systems - Review of Systems Constitutional: absent: Fatigue, Fevers Respiratory: absent: SOB, Cough Cardiovascular: absent: Chest Pain, Palpitations Gastrointestinal: absent: Abdominal Pain, Nausea, Vomiting Genitourinary Female: absent: Dysuria, Frequency, Hematuria Musculoskeletal: Arthralgias, Back Pain. absent: Neck Pain Skin: absent: Rash, Pruritis Neurological: absent: Headache, Dizziness Psychiatric: absent: Anxiety, Depression Physical Exam Vital Signs Reviewed: Yes Vital Signs Temp Pulse Resp BP Pulse Ox 08/15/18 15:48 98.4 F 71 17 110/70 100 Temperature: Afebrile Blood Pressure: Normal Pulse: Regular Respiratory Rate: Normal Appearance: Positive for: Well-Appearing, Non-Toxic, Comfortable Pain Distress: None Mental Status: Positive for: Alert and Oriented X 3 - Systems Exam Head: Present: Atraumatic Mouth: Present: Moist Mucous Membranes Neck: Present: Normal Range of Motion Respiratory/Chest: Present: Clear to Auscultation, Good Air Exchange. No: Respiratory Distress, Accessory Muscle Use Cardiovascular: Present: Regular Rate and Rhythm, Normal S1, S2. No: Murmurs Abdomen: No: Tenderness, Distention, Peritoneal Signs, Rebound, Guarding Back: Present: Normal Inspection, Paraspinal Tenderness (+ left sided lumbar paraspinal tenderness), Pain with Leg Raise. No: CVA Tenderness, Midline Tenderness Upper Extremity: Present: Normal Inspection, Normal ROM Lower Extremity: Present: Normal Inspection, Normal ROM, Neurovascularly Intact, Other (+ ttp over left sciatic foramen. ) Neurological: Present: GCS=15, Speech Normal Skin: Present: Warm, Dry, Normal Color. No: Rashes Psychiatric: Present: Alert, Oriented x 3 Medical Decision Making ED Course and Treatment: 08/15/18 18:29 Patient nontoxic well-appearing in no distress with stable vital signs. Toradol and Valium given for pain Patient reassessment: Feeling better with medications ambulating with a steady gait. Muscle strength 5 out of 5 bilaterally. I advised to followup with the orthopedist within the next 2 days. Return if symptoms worsen persist or new symptoms develop Patient was advised to follow-up with employee health tomorrow Patient verbalizes understanding of discharge instructions and need for immediate followup. all aspects of this case were discussed the attending of record. Impression: Back pain Motrin every 6 hours as needed for pain valium one tablet every 8 hours as needed for muscle spasms: May cause drowsiness Follow up with employee health tomorrow . Followup with the orthopedist/back specialist within the next 2 days Followup with primary care physician within the next 2 days Return if symptoms worsen persist or if new symptoms develop - Medication Orders Current Medication Orders: Discontinued Medications Diazepam (Valium) 5 mg PO ONCE ONE Stop: 08/15/18 16:04 Ketorolac Tromethamine (Toradol) 60 mg IM STAT STA Stop: 08/15/18 16:04 Disposition/Present on Arrival - Present on Arrival Any Indicators Present on Arrival: No History of DVT/PE: No History of Uncontrolled Diabetes: No Urinary Catheter: No History of Decub. Ulcer: No History Surgical Site Infection Following: None - Disposition Have Diagnosis and Disposition been Completed?: Yes Diagnosis: Back pain Disposition: HOME/ ROUTINE Disposition Time: 16:51 Patient Plan: Discharge Condition: GOOD Discharge Instructions (ExitCare): Low Back Pain (DC), Sciatica Exercises Additional Instructions: Motrin every 6 hours as needed for pain valium one tablet every 8 hours as needed for muscle spasms: May cause drowsiness Follow up with employee health tomorrow . Followup with the orthopedist/back specialist within the next 2 days Followup with primary care physician within the next 2 days Return if symptoms worsen persist or if new symptoms develop [facility] Employee Regarding your Work Related Injury, you are instructed to do all of the following by next day: 1. Notify [facility] Employee Health Department of the sustained injury and arrange for any follow-up appointments if needed during the next business day. If the office is closed or no answer is received, please leave a detailed voice message. Message should include your full name, department and assurance services manager health care, date of injury, date of ED visit if applicable. Employee Health can be reached at [phone]. 2. If there is time lost, notify [facility] Human Resources Department of the work related injury the next business day at [phone]. Prescriptions: diaZEpam [Valium] 2 mg PO Q8H PRN #6 tab PRN Reason: muscle spasms Ibuprofen [Motrin] 600 mg PO Q6H PRN #20 tab PRN Reason: pain/fever reduction Referrals: Serjio Mitchell MD [Staff Provider] - Follow up with primary Opal Dickson MD [Medical Doctor] - Follow up with primary Pa[facility] Phys[facility]otherap[facility] [Outside] - Follow up with primary Forms: [employer] (Dutch), WORK NOTE
[2018-08-15 19:29] VITALS: BP 112/78; PULSE 80; TEMP 98.2
== END 2018-08-15 18:20 | disposition home or self-care (01) ==
LOC: ED 15:45
DX: M54.5 Low back pain (principal); E03.9 Hypothyroidism, unspecified
CPT/HCPCS: 96372; 99283; J1885

== ENCOUNTER 2018-11-18 22:50 | Emergency (ER) | payer OTHER ==
[2018-11-18 22:51] VITALS: BMI 25.2
[2018-11-18 23:15] VITALS: RESP 18
[2018-11-18] MEDS ORDERED: Oxycodone/Acetaminophen 5/325 mg Tab PO STA (23:44)
[2018-11-18] MEDS ORDERED: Lidocaine 5% Patch TD STA (23:44)
--- NOTE | 2018-11-19 00:46 | ED PDOC ---
Arrival/HPI - General Historian: Patient - History of Present Illness Narrative History of Present Illness (Text): 11/19/18 00:46 38-year-old female who is an employee of [employer], reports exacerbation of pain in the lower back radiating to both of her legs, states that the pain has been on going since she sustained a work-related injury after attempting to left a patient while she was at work, states that she is currently taking tramadol, ibuprofen, flexeril and celebrex for pain, however today has no pain relief prompting ER visit. States that she is currently following up with a pain management doctor for her low back pain and herniated disc at L5-S1. Otherwise: (-) paresthesias, (-) weakness, (-) urinary symptoms, (-) acute bowel or bladder dysfunction, (-) fever. PMD Villegas <Anastasia Nieves PA-C - Last Filed: 11/19/18 02:04> <Raul Lagos - Last Filed: 11/19/18 02:09> - General Chief Complaint: Back Pain Time Seen by Provider: 11/18/18 23:18 Past Medical History - Infectious Disease Hx of Infectious Diseases: None - Reproductive Currently : No - Cardiac Hx Cardiac Disorders: No - Pulmonary Hx Respiratory Disorders: No - Neurological Hx Neurological Disorder: Yes Hx Migraine: Yes - HEENT Hx HEENT Disorder: No - Renal Hx Renal Disorder: No - Endocrine/Metabolic Hx Endocrine Disorders: Yes Hx Hypothyroidism: Yes - Hematological/Oncological Hx Blood Disorders: No - Integumentary Hx Dermatological Disorder: No - Musculoskeletal/Rheumatological Hx Musculoskeletal Disorders: No - Gastrointestinal Hx Gastrointestinal Disorders: Yes Hx Gastroesophageal Reflux: Yes - Genitourinary/Gynecological Hx Genitourinary Disorders: Yes Other/Comment: endometriosis - Psychiatric Hx Psychophysiologic Disorder: No Hx Substance Use: No - Surgical History Hx Section: Yes (2011) Hx Tonsillectomy: Yes (2006) Other/Comment: laparoscopy 2006 - Anesthesia Hx Anesthesia: No Hx Anesthesia Reactions: No Hx Malignant Hyperthermia: No <Anastasia Nieves PA-C - Last Filed: 11/19/18 02:04> Family/Social History Family/Social History: No Known Family HX Smoking Status: Never Smoked Hx Alcohol Use: Yes Hx Substance Use: No <Anastasia Nieves PA-C - Last Filed: 11/19/18 02:04> Allergies/Home Meds <Anastasia Nieves PA-C - Last Filed: 11/19/18 02:04> <Raul Lagos - Last Filed: 11/19/18 02:09> Allergies/Adverse Reactions: Allergies Penicillins Adverse Reaction (Verified 08/15/18 15:47) ANAPHYLAXIS Home Medications: Home Meds Medication Instructions Recorded Confirmed Levothyroxine [Synthroid] 112 mcg PO DAILY 08/15/18 11/18/18 Celecoxib [celeBREX] 100 mg PO BID 11/18/18 11/18/18 Cyclobenzaprine [Flexeril] 10 mg PO BID 11/18/18 11/18/18 Gabapentin [Neurontin] 600 mg PO BID 11/18/18 11/18/18 Omeprazole 40 mg PO DAILY 11/18/18 11/18/18 Review of Systems - Review of Systems Constitutional: absent: Fatigue, Fevers Respiratory: absent: SOB, Cough Cardiovascular: absent: Chest Pain, Palpitations Gastrointestinal: absent: Abdominal Pain, Nausea, Vomiting Genitourinary Female: absent: Dysuria, Frequency, Hematuria Musculoskeletal: Back Pain. absent: Arthralgias, Neck Pain Skin: absent: Rash, Pruritis, Skin Lesions Neurological: Headache (+h/o migraine headaches). absent: Dizziness <Anastasia Nieves PA-C - Last Filed: 11/19/18 02:04> Physical Exam - Physical Exam Narrative Physical Exam (Text): 11/19/18 00:47 GENERAL APPEARANCE: Patient is awake, alert, oriented x 3, in mild to moderate painful distress. Patient is tearful. SKIN: Warm, dry; (-) cyanosis. EYES: (-) conjunctival pallor. ENMT: Mucous membranes moist. NECK: (-) tenderness, (-) stiffness, (-) lymphadenopathy. CHEST AND RESPIRATORY: (-) rales, (-) rhonchi, (-) wheezes; breath sounds equal bilaterally. HEART AND CARDIOVASCULAR: (-) irregularity; (-) murmur, (-) gallop. ABDOMEN AND GI: Soft; (-) tenderness; (-) palpable mass. BACK: Diffusely tender paralumbar area, (+) mild spasm, (-) direct bony tenderness, (-) deformity. Straight leg raising (-) bilaterally. EXTREMITIES: (-) deformity. Distal pulses good bilaterally. NEURO AND PSYCH: Mental status as above. Intact sensation bilaterally; normal strength in extension of the knees, plantar and dorsiflexion of the toes. Vital Signs Temp Pulse Resp BP Pulse Ox 11/18/18 23:14 97.8 F 96 H 18 124/88 99 <Anastasia Nieves PA-C - Last Filed: 11/19/18 02:04> Vital Signs Temp Pulse Resp BP Pulse Ox 11/18/18 23:14 97.8 F 96 H 18 124/88 99 <Raul Lagos - Last Filed: 11/19/18 02:09> Medical Decision Making ED Course and Treatment: 11/19/18 00:48 Patient given toradol IM, lidoderm patch, percocet PO. On reevaluation, patient reports improvement of symptoms. On exam, patient remains awake alert and oriented 3 in no acute distress. Repeat neuro exam shows no focal findings. Advised to follow up with primary care physician and pain management doctor in 1-2 days without fail. Advised to take medication as prescribed. Return to the emergency room at any time for any new or worsening symptoms. Patient states she fully agrees with and understands discharge instructions. States that she agrees with the plan and disposition. Verbalized and repeated discharge instructions and plan. I have given the patient opportunity to ask any additional questions. - Medication Orders Current Medication Orders: Discontinued Medications Ketorolac Tromethamine (Toradol) 30 mg IM STAT STA Stop: 11/18/18 23:45 Last Admin: 11/19/18 00:03 Dose: 30 mg MAR Pain Assessment Document 11/19/18 00:03 (Rec: 11/19/18 00:04 [id number] Pain Reassessment Is this a pain reassessment? Yes Location Upper or Lower Lower Pain Location Body Site Back Description Description Constant IM Administration Charges Document 11/19/18 00:03 RG (Rec: 11/19/18 00:04 RG [id number]) Injection Site MAR Injection Site Left Deltoid Charges for Administration # of IM Administrations 1 Lidocaine (Lidoderm) 1 ea TD STAT STA Stop: 11/18/18 23:45 Last Admin: 11/19/18 00:00 Dose: 1 ea MAR Transdermal Patch Site Document 11/19/18 00:00 RG (Rec: 11/19/18 00:03 RG [id number]) Transdermal Patch Site Transdermal Patch Site Left Lower Back Oxycodone/Acetaminophen (Percocet 5/325 Mg Tab) 1 tab PO STAT STA Stop: 11/18/18 23:45 Last Admin: 11/19/18 00:03 Dose: 1 tab MAR Pain Assessment Document 11/19/18 00:03 RG (Rec: 11/19/18 00:03 RG [id number]) Pain Reassessment Is this a pain reassessment? Yes Sleep Is patient sleeping during reassessment? No Presence of Pain Presence of Pain Yes Pain Scale Used Protocol: PSCALES Pain Scale Used Numeric Location Upper or Lower Lower Pain Location Body Site Back Description Description Sharp <Anastasia Nieves PA-C - Last Filed: 11/19/18 02:04> - Medication Orders Current Medication Orders: Discontinued Medications Ketorolac Tromethamine (Toradol) 30 mg IM STAT STA Stop: 11/18/18 23:45 Last Admin: 11/19/18 00:03 Dose: 30 mg MAR Pain Assessment Document 11/19/18 00:03 RG (Rec: 11/19/18 00:04 RG [id number]) Pain Reassessment Is this a pain reassessment? Yes Location Upper or Lower Lower Pain Location Body Site Back Description Description Constant IM Administration Charges Document 11/19/18 00:03 RG (Rec: 11/19/18 00:04 RG [id number]) Injection Site MAR Injection Site Left Deltoid Charges for Administration # of IM Administrations 1 Lidocaine (Lidoderm) 1 ea TD STAT STA Stop: 11/18/18 23:45 Last Admin: 11/19/18 00:00 Dose: 1 ea MAR Transdermal Patch Site Document 11/19/18 00:00 RG (Rec: 11/19/18 00:03 RG [id number]) Transdermal Patch Site Transdermal Patch Site Left Lower Back Oxycodone/Acetaminophen (Percocet 5/325 Mg Tab) 1 tab PO STAT STA Stop: 11/18/18 23:45 Last Admin: 11/19/18 00:03 Dose: 1 tab MAR Pain Assessment Document 11/19/18 00:03 KIM (Rec: 11/19/18 00:03 RG [id number]) Pain Reassessment Is this a pain reassessment? Yes Sleep Is patient sleeping during reassessment? No Presence of Pain Presence of Pain Yes Pain Scale Used Protocol: PSCALES Pain Scale Used Numeric Location Upper or Lower Lower Pain Location Body Site Back Description Description Sharp <Raul Lagos - Last Filed: 11/19/18 02:09> - PA / LITIGATION ASSOCIATE / Resident Statement ALONSO has reviewed & agrees with the documentation as recorded. <Anastasia Nieves PA-C - Last Filed: 11/19/18 02:04> - PA / LITIGATION ASSOCIATE / Resident Statement ALONSO has reviewed & agrees with the documentation as recorded. ALONSO has examined the patient and agrees with the treatment plan. <Raul Lagos - Last Filed: 11/19/18 02:09> Disposition/Present on Arrival - Present on Arrival Any Indicators Present on Arrival: No History of DVT/PE: No History of Uncontrolled Diabetes: No Urinary Catheter: No History of Decub. Ulcer: No History Surgical Site Infection Following: None - Disposition Have Diagnosis and Disposition been Completed?: Yes Disposition Time: 01:45 Patient Plan: Discharge <Anastasia Nieves PA-C - Last Filed: 11/19/18 02:04> <Raul Lagos - Last Filed: 11/19/18 02:09> - Disposition Diagnosis: Low back pain Disposition: HOME/ ROUTINE Patient Problems: Current Active Problems Problem Status Onset Low back pain Acute Condition: STABLE Discharge Instructions (ExitCare): Low Back Pain (DC) Additional Instructions: Thank you for letting us take care of you today. You were treated for low back pain. The emergency medical care you received today was directed at your acute symptoms. If you were prescribed any medication, please fill it and take as directed. It may take several days for your symptoms to resolve. Return to the Emergency Department if your symptoms worsen, do not improve, or if you have any other problems. Please contact your primary care and pain management doctor in 2 days for re- evaluation and follow up. Bring any paperwork you were given at discharge with you along with any medications you are taking to your follow up visit. Our treatment cannot replace ongoing medical care by a primary care provider (PCP) outside of the emergency department. Thank you for allowing the [facility] team to be part of your care today. Prescriptions: Diclofenac Epolamine [Flector] 1 each TD BID PRN #20 patch.td12 PRN Reason: Pain, Moderate (4-7) Referrals: Dillon Villegas MD [Primary Care Provider] - Follow up with primary Forms: [employer] (Gambian)
[2018-11-19 02:30] VITALS: BP 120/78; PULSE 90; TEMP 98; O2SAT 100
== END 2018-11-19 02:10 | disposition home or self-care (01) ==
LOC: ED 22:50
DX: M54.5 Low back pain (principal); E03.9 Hypothyroidism, unspecified
CPT/HCPCS: 81025; 96372; 99283; J1885

== ENCOUNTER 2018-12-06 23:39 | Emergency (ER) | payer BC ==
[2018-12-06 23:46] VITALS: BMI 25.0
[2018-12-06 23:53] VITALS: TEMP 98.2
[2018-12-06] MEDS ORDERED: Morphine 2 mg/ml ISec IVP STA (23:55)
--- NOTE | 2018-12-07 00:06 | ED PDOC ---
Arrival/HPI - General Chief Complaint: Back Pain Time Seen by Provider: 12/06/18 23:42 Historian: Patient - History of Present Illness Narrative History of Present Illness (Text): 12/06/18 23:50 Jennifer Lockhart is a 38 year old female, whose past medical history includes migraines, hypothyroidism, and herniated discs, who presents to the Emergency department complaining of lower back pain. Patient states she recently underwent an epidural today for her herniated discs and developed lower back pain this evening. Patient also reports some urinary incontinence. Patient denies any fever, chills, chest pain, shortness of breath, nausea, vomiting, diarrhea,d ysuria back pain, neck pain, headache, dizziness, or any other complaints. Symptom Onset: Gradual Symptom Course: Unchanged Activities at Onset: Light Context: Home Past Medical History - Provider Review Nursing Documentation Reviewed: Yes - Infectious Disease Hx of Infectious Diseases: None - Cardiac Hx Cardiac Disorders: No - Pulmonary Hx Respiratory Disorders: No - Neurological Hx Neurological Disorder: Yes Hx Migraine: Yes - HEENT Hx HEENT Disorder: No - Renal Hx Renal Disorder: No - Endocrine/Metabolic Hx Endocrine Disorders: Yes Hx Hypothyroidism: Yes - Hematological/Oncological Hx Blood Disorders: No - Integumentary Hx Dermatological Disorder: No - Musculoskeletal/Rheumatological Hx Musculoskeletal Disorders: No - Gastrointestinal Hx Gastrointestinal Disorders: Yes Hx Gastroesophageal Reflux: Yes - Genitourinary/Gynecological Hx Genitourinary Disorders: Yes Other/Comment: endometriosis - Psychiatric Hx Psychophysiologic Disorder: No Hx Substance Use: No - Surgical History Hx Section: Yes (2011) Hx Tonsillectomy: Yes (2006) Other/Comment: laparoscopy 2005 - Anesthesia Hx Anesthesia: No Hx Anesthesia Reactions: No Hx Malignant Hyperthermia: No Family/Social History - Physician Review Nursing Documentation Reviewed: Yes Family/Social History: Unknown Family HX Smoking Status: Never Smoked Hx Alcohol Use: Yes Hx Substance Use: No Allergies/Home Meds Allergies/Adverse Reactions: Allergies Penicillins Adverse Reaction (Verified 08/15/18 15:47) ANAPHYLAXIS Home Medications: Home Meds Medication Instructions Recorded Confirmed Levothyroxine [Synthroid] 112 mcg PO DAILY 08/15/18 12/06/18 Gabapentin [Neurontin] 600 mg PO HS 11/18/18 12/06/18 Gabapentin [Neurontin] 300 mg PO DAILY 02/27/19 02/27/19 tiZANidine [Zanaflex] 8 mg PO HS 12/06/18 12/06/18 Review of Systems - Physician Review All systems were reviewed & negative as marked: Yes - Review of Systems Constitutional: Normal. absent: Fevers Eyes: Normal ENT: Normal Respiratory: Normal. absent: SOB, Cough Cardiovascular: Normal. absent: Chest Pain Gastrointestinal: Normal. absent: Abdominal Pain, Diarrhea, Nausea, Vomiting Genitourinary Female: Urine Output Changes (+urinary incontinence). absent: Dysuria, Frequency, Hematuria Musculoskeletal: Back Pain. absent: Neck Pain Skin: Normal. absent: Rash Neurological: Normal. absent: Headache, Dizziness Endocrine: Normal Hemo/Lymphatic: Normal Psychiatric: Normal Physical Exam Vital Signs Reviewed: Yes Vital Signs Temp Pulse Resp BP Pulse Ox 12/06/18 23:50 98.2 F 86 18 133/93 H 100 Temperature: Afebrile Blood Pressure: Normal Pulse: Regular Respiratory Rate: Normal Appearance: Positive for: Well-Appearing, Non-Toxic, Comfortable Pain Distress: None Mental Status: Positive for: Alert and Oriented X 3 - Systems Exam Head: Present: Atraumatic, Normocephalic Pupils: Present: PERRL Extroacular Muscles: Present: EOMI Conjunctiva: Present: Normal Mouth: Present: Moist Mucous Membranes Neck: Present: Normal Range of Motion Respiratory/Chest: Present: Clear to Auscultation, Good Air Exchange. No: Respiratory Distress, Accessory Muscle Use Cardiovascular: Present: Regular Rate and Rhythm, Normal S1, S2. No: Murmurs Abdomen: No: Tenderness, Distention, Peritoneal Signs Back: Present: Normal Inspection Upper Extremity: Present: Normal Inspection. No: Cyanosis, Edema Lower Extremity: Present: Normal Inspection. No: Edema Neurological: Present: GCS=15, CN II-XII Intact, Speech Normal Skin: Present: Warm, Dry, Normal Color. No: Rashes Psychiatric: Present: Alert, Oriented x 3, Normal Insight, Normal Concentration Medical Decision Making ED Course and Treatment: 12/06/18 23:40 Impression: 38 year old female complaining of lower back pain and some urinary incontinence after undergoing an epidural today. Plan: -- EKG -- Labs, troponin -- Urinalysis -- Zofran -- Morphine -- Reassess and disposition Prior Visits: Notes and results from previous visits were reviewed. Progress Notes: reviewed EKG, NSR at [address]-segment elevations or depressions, no T-wave inversions, normal intervals. 12/07/18 02:16 CT Lumbar Spine: There are diffuse spondylotic changes. Findings are demonstrated by disc space narrowing, osteophyte formation and degenerative endplate changes. Facet joint arthropathy is noted. No fracture or dislocation is seen. No aggressive bone lesion is noted. Moderate multilevel degenerative disc disease most prominent at L5-S1. Impression: Spondylosis. Multilevel facet joint arthropathy. No acute bone pathology. Moderate multilevel degenerative disc disease. No fluid collection is noted. Electronically signed on Dec 07, 2018 1:59:01 AM EST by: Nahid Paniagua M.D., Certified by ABR, MSK, Neuroradiology 12/07/18 03:50 On re-evaluation, patient feels better and is in no acute distress. I have discussed the results and plan with the patient, who expresses understanding. Patient in agreement with plan to be discharged home. Patient is stable for discharge. Patient was instructed to follow up with physician or return if symptoms worsen or new concerning symptoms arise. - Lab Interpretations I have reviewed the lab results: Yes - RAD Interpretation Laborer Cement Gun Placing: Radiologist - EKG Interpretation Interpreted by ED Physician: Yes Type: 12 lead EKG - Medication Orders Current Medication Orders: Discontinued Medications Morphine Sulfate (Morphine) 2 mg IVP STAT STA Stop: 12/06/18 23:56 Ondansetron HCl (Zofran Inj) 4 mg IVP STAT STA Stop: 12/06/18 23:56 - Scribe Statement The provider has reviewed the documentation as recorded by the Lorraine Campos Provider Scribe Attestation: All medical record entries made by the Jakyibprabhakar were at my direction and personally dictated by me. I have reviewed the chart and agree that the record accurately reflects my personal performance of the history, physical exam, medical decision making, and the department course for this patient. I have also personally directed, reviewed, and agree with the discharge instructions and disposition. Disposition/Present on Arrival - Present on Arrival Any Indicators Present on Arrival: No History of DVT/PE: No History of Uncontrolled Diabetes: No Urinary Catheter: No History of Decub. Ulcer: No History Surgical Site Infection Following: None - Disposition Have Diagnosis and Disposition been Completed?: Yes Diagnosis: Back pain Disposition: HOME/ ROUTINE Disposition Time: 03:50 Condition: IMPROVED Discharge Instructions (ExitCare): Low Back Pain (DC) Referrals: Dillon Villegas MD [Primary Care Provider] - Follow up with primary Forms: [employer] (German)
[2018-12-07 00:44] LABS: ALB/GLOB RATIO 1.4 (1.1-1.8); ALBUMIN 4.5 g/dL (3.0-4.8); ALT/SGPT 16 U/L (7-56); AST/SGOT 37 U/L (14-36); BLOOD UREA NITROGEN 17 mg/dL (7-21); CALCIUM 9.2 mg/dL (8.4-10.5); GFR NON-AFRICAN AMERICAN > 60
[2018-12-07 00:46] LABS: BASO # 0.03 K/mm3 (0.0-2.0); BASO % 0.3 % (0.0-3.0); EOS # 0.1 (0.0-0.7); EOS % 0.5 % (1.5-5.0); LYMPH # 3.9 (1.2-3.4); MEAN CELL VOLUME 89.6 fl (80.0-105.0); MEAN CORPUSCULAR HEMOGLOBIN 29.1 pg (25.0-35.0); MEAN CORPUSCULAR HGB CONC 32.4 g/dl (31.0-37.0); MEAN PLATELET VOLUME 10.8 fl (7.0-11.0); MONO # 0.8 (0.1-0.6); MONO % 6.9 % (1.0-6.0); RBC 4.13 10^6/uL (3.5-6.1); RED CELL DISTRIBUTION WIDTH 12.9 % (11.5-14.5); WHITE BLOOD COUNT 11.8 10^3/uL (4.5-11.0)
[2018-12-07 00:56] LABS: TROPONIN I < 0.01 ng/mL
[2018-12-07] MEDS ORDERED: Morphine 2 mg/ml ISec IVP STA (00:59)
[2018-12-07] MEDS ORDERED: Iohexol 350 MG/100 ML VIAL ONE (01:15)
[2018-12-07 01:36] LABS: PH,URINE 7.5 (4.7-8.0); URINE APPEARANCE CLEAR (CLEAR); URINE BILIRUBIN NEGATIVE (NEGATIVE); URINE BLOOD TRACE-INTACT (NEGATIVE); URINE COLOR YELLOW (YELLOW); URINE GLUCOSE (UA) NEGATIVE (NEGATIVE); URINE LEUKOCYTE ESTERASE NEGATIVE Leu/uL (NEGATIVE); URINE PROTEIN NEGATIVE mg/dL (<30 mg/dL); URINE UROBILINOGEN 0.2 E.U./dL (<1 E.U./dL)
[2018-12-07 01:49] LABS: URINE BACTERIA RARE /hpf; URINE RBC 0 - 2 /hpf (0-2); URINE WBC 0 - 2 /hpf (0-6)
[2018-12-07 02:58] VITALS: BP 123/80; PULSE 71; RESP 16; O2SAT 98
--- NOTE | 2018-12-07 08:08 | CT ---
Date of service: 12/07/2018 PROCEDURE: CT Lumbar Spine without contrast HISTORY: epidural today r/o abscess COMPARISON: None available. TECHNIQUE: Axial computed tomography images were obtained of the lumbar spine without the use of intravenous contrast. Coronal and sagittal reformatted images were created and reviewed. Radiation dose: Total exam DLP = 831.16 mGy-cm. This CT exam was performed using one or more of the following dose reduction techniques: Automated exposure control, adjustment of the mA and/or kV according to patient size, and/or use of iterative reconstruction technique. FINDINGS: VERTEBRAE: Unremarkable. No fracture. Normal alignment. DISCS/SPINAL CANAL/NEURAL FORAMINA: L1-2: Unremarkable. L2-3: Limited disc bulging identified encroaching the bilateral lateral recesses without causing significant central stenosis. No neural foraminal stenosis bilaterally. L3-4: Unremarkable. L4-5: Unremarkable. L5-S1: A small disc osteophyte complex is circumferential but does not cause significant central stenosis. No neural foraminal stenosis bilaterally. PARASPINAL SOFT TISSUES: Unremarkable. OTHER FINDINGS: None. IMPRESSION: 1. No CT sign of abnormal epidural or intrathecal enhancement. In evaluation of the lumbar spine, the proper CT imaging protocol, should contrast be needed, is to perform lumbar spine CT with and without contrast, particularly for patient has been instrumented. Hemorrhage can occasionally difficult to differentiate from enhancing masses or hyperdense masses in the central canal a most other rationales for imaging prior to and following intravenous contrast delivery. 2. Limited multilevel disc bulging without moderate or severe central canal stenosis appreciated no neural foraminal stenosis appreciated throughout the examination. Preliminary report provided by Krystle, 12/07/2018, 1:59 a.m..
--- NOTE | 2018-12-07 09:18 | CARD ---
APPROVED REPORT Date of service: 12/07/2018 EKG Measurement Heart [id number] <Conclusion> Normal sinus rhythm Normal ECG
== END 2018-12-07 03:50 | disposition home or self-care (01) ==
LOC: ED 23:39
DX: M54.5 Low back pain (principal); E03.9 Hypothyroidism, unspecified
CPT/HCPCS: 72132; 80053; 81001; 81025; 84484; 85025; 93005; 96374; 96375; 96376; 99283; J2270; J2405; J2765; Q9967

== ENCOUNTER 2018-12-10 05:43 | Emergency (ER) | payer BC ==
[2018-12-10 05:43] VITALS: BMI 25.0
[2018-12-10 06:04] VITALS: TEMP 98.1
[2018-12-10] MEDS ORDERED: Lidocaine 5% Patch TD ONE (06:07)
[2018-12-10] MEDS ORDERED: Sodium Chloride 0.9% 1,000 ML IV STA (07:45)
--- NOTE | 2018-12-10 07:51 | ED PDOC ---
Arrival/HPI - General Chief Complaint: Back Pain Historian: Patient - History of Present Illness Symptom Onset: Gradual Symptom Course: Unchanged Severity Level: Moderate Activities at Onset: Rest Associated Symptoms (Text): 12/10/18 07:49 Patient with a known HNP at L4-L5 after heavy lifting at work. She had a MRI which showed the same. She has had 2 epidurals. Following the last epidural the pain became worse. She had a CT scan of the lumbar spine 3 days ago which ruled out a hematoma. Today she has severe nausea and vomiting from the pain. There is no loss of bowel or bladder control. No abdominal pain or diarrhea. No genitourinary symptoms. No weakness. The pain does radiate into bilateral buttocks and lower extremities. No fever or chills. No new injury or trauma. Past Medical History - Provider Review Nursing Documentation Reviewed: Yes - Infectious Disease Hx of Infectious Diseases: None - Cardiac Hx Cardiac Disorders: No - Pulmonary Hx Respiratory Disorders: No - Neurological Hx Neurological Disorder: Yes Hx Migraine: Yes - HEENT Hx HEENT Disorder: No - Renal Hx Renal Disorder: No - Endocrine/Metabolic Hx Endocrine Disorders: Yes Hx Hypothyroidism: Yes - Hematological/Oncological Hx Blood Disorders: No - Integumentary Hx Dermatological Disorder: No - Musculoskeletal/Rheumatological Hx Musculoskeletal Disorders: No - Gastrointestinal Hx Gastrointestinal Disorders: Yes Hx Gastroesophageal Reflux: Yes - Genitourinary/Gynecological Hx Genitourinary Disorders: Yes Other/Comment: endometriosis - Psychiatric Hx Psychophysiologic Disorder: No Hx Substance Use: No - Surgical History Hx Section: Yes (2011) Hx Tonsillectomy: Yes (2006) Other/Comment: laparoscopy 2005 - Anesthesia Hx Anesthesia: No Hx Anesthesia Reactions: No Hx Malignant Hyperthermia: No Family/Social History - Physician Review Nursing Documentation Reviewed: Yes Family/Social History: Unknown Family HX Smoking Status: Never Smoked Hx Alcohol Use: Yes Hx Substance Use: No Allergies/Home Meds Allergies/Adverse Reactions: Allergies Penicillins Adverse Reaction (Verified 08/15/18 15:47) ANAPHYLAXIS Home Medications: Home Meds Medication Instructions Recorded Confirmed Levothyroxine [Synthroid] 112 mcg PO DAILY 08/15/18 12/06/18 Gabapentin [Neurontin] 600 mg PO HS 11/18/18 12/06/18 Gabapentin [Neurontin] 300 mg PO DAILY 12/06/18 12/06/18 tiZANidine [Zanaflex] 8 mg PO HS 12/06/18 12/06/18 Review of Systems - Physician Review All systems were reviewed & negative as marked: Yes - Review of Systems Constitutional: Normal Respiratory: Normal Cardiovascular: Normal Gastrointestinal: Nausea, Vomiting. absent: Abdominal Pain, Diarrhea Genitourinary Female: absent: Dysuria, Frequency, Hematuria Neurological: absent: Headache, Dizziness, Focal Weakness Physical Exam Vital Signs Reviewed: Yes Vital Signs Temp Pulse Resp BP Pulse Ox 12/10/18 06:03 98.1 F 84 20 115/70 98 Temperature: Afebrile Blood Pressure: Normal Pulse: Regular Respiratory Rate: Normal Appearance: Positive for: Well-Appearing, Non-Toxic, Comfortable Pain Distress: None Mental Status: Positive for: Alert and Oriented X 3 - Systems Exam Head: Present: Atraumatic, Normocephalic Pupils: Present: PERRL Extroacular Muscles: Present: EOMI Conjunctiva: Present: Normal Neck: Present: Normal Range of Motion Respiratory/Chest: Present: Clear to Auscultation, Good Air Exchange. No: Re spiratory Distress, Accessory Muscle Use Abdomen: No: Tenderness, Distention, Peritoneal Signs, Rebound, Guarding Back: Present: Normal Inspection, Midline Tenderness, Paraspinal Tenderness. No: CVA Tenderness, Pain with Leg Raise, Decubitus Ulcer Upper Extremity: Present: Normal Inspection. No: Cyanosis, Edema Lower Extremity: Present: Normal Inspection. No: Edema Neurological: Present: GCS=15, CN II-XII Intact, Speech Normal, Motor Func Grossly Intact Skin: Present: Warm, Dry, Normal Color. No: Rashes Psychiatric: Present: Alert, Oriented x 3, Normal Insight, Normal Concentration Medical Decision Making ED Course and Treatment: 12/10/18 08:00 Patient is not taking her Percocet as it does not agree with her. 12/10/18 09:20 Little change after Toradol Lidoderm and Zofran. Markedly improved after morphine and Reglan. Workup is unremarkable. Patient will be discharged home with Medrol Zofran Reglan and Vicodin to try. Follow-up with PMD and surgeon. Follow-up in ER as needed. 12/10/18 09:25 Patient has never had a course of steroids during this problem with her back. Will be given a prescription for Medrol. - Medication Orders Current Medication Orders: Sodium Chloride (Sodium Chloride 0.9%) 1,000 mls @ 1,000 mls/hr IV .Q1H STA Stop: 12/10/18 08:44 Ketorolac Tromethamine (Toradol) 15 mg IVP STAT STA Stop: 12/10/18 07:46 Ondansetron HCl (Zofran Inj) 4 mg IVP STAT STA Stop: 12/10/18 07:46 Discontinued Medications Ketorolac Tromethamine (Toradol) 60 mg IM STAT STA Stop: 12/10/18 06:08 Lidocaine (Lidoderm) 1 ea TD ONCE ONE Stop: 12/10/18 06:08 Last Admin: 12/10/18 07:02 Dose: 1 ea MAR Transdermal Patch Site Document 12/10/18 07:02 RD (Rec: 12/10/18 07:02 RD [id number]) Transdermal Patch Site Transdermal Patch Site Right Lower Back Ondansetron HCl (Zofran Odt) 4 mg PO STAT STA Stop: 12/10/18 06:35 Last Admin: 12/10/18 07:02 Dose: 4 mg Disposition/Present on Arrival - Present on Arrival Any Indicators Present on Arrival: No History of DVT/PE: No History of Uncontrolled Diabetes: No Urinary Catheter: No History of Decub. Ulcer: No History Surgical Site Infection Following: None - Disposition Have Diagnosis and Disposition been Completed?: Yes Diagnosis: Herniated nucleus pulposus, Nausea and vomiting Disposition: HOME/ ROUTINE Disposition Time: 09:21 Patient Plan: Discharge Condition: IMPROVED Discharge Instructions (ExitCare): Low Back Pain in Adults, Nausea and Vomiting, Adult (DC) Additional Instructions: Rest and moist heat. Follow-up with PMD. Follow-up in ER as needed. Prescriptions: Methylprednisolone [Medrol Dose Pack (21 tabs)] 4 mg PO ASDIR #21 mg Metoclopramide HCl [Reglan] 10 mg PO TID #20 tablet Hydrocodone/Acetaminophen [Vicodin Es 7.5-300 mg Tablet] 1 each PO Q6 #20 tablet Ondansetron ODT [Zofran ODT] 4 mg PO Q6 #20 odt Forms: [employer] (Kinyarwanda)
[2018-12-10 08:14] LABS: BASO # 0.02 {null, K/mm3} (0.0-2.0); BASO % 0.2 % (0.0-3.0); EOS # 0.3 (0.0-0.7); EOS % 3.8 % (1.5-5.0); HEMOGLOBIN 10.8 g/dL (12.0-16.0); LYMPH # 2.7 (1.2-3.4); LYMPH % 30.7 % (22.0-35.0); MEAN CELL VOLUME 90.3 fl (80.0-105.0); MEAN CORPUSCULAR HEMOGLOBIN 29.1 pg (25.0-35.0); MEAN CORPUSCULAR HGB CONC 32.2 g/dl (31.0-37.0); MEAN PLATELET VOLUME 10.5 fl (7.0-11.0); MONO # 0.4 (0.1-0.6); MONO % 4.9 % (1.0-6.0); RBC 3.71 {null, 10^6/uL} (3.5-6.1); WHITE BLOOD COUNT 8.8 {null, 10^3/uL} (4.5-11.0)
[2018-12-10] MEDS ORDERED: Morphine 4 mg/ml ISec IVP STA (08:27)
[2018-12-10 08:30] LABS: ALB/GLOB RATIO 1.4 (1.1-1.8); ALBUMIN 4.2 g/dL (3.0-4.8); ALT/SGPT 12 U/L (7-56); AST/SGOT 23 U/L (14-36); BLOOD UREA NITROGEN 20 mg/dL (7-21); CALCIUM 8.6 mg/dL (8.4-10.5); GFR NON-AFRICAN AMERICAN > 60
[2018-12-10 09:51] VITALS: BP 112/68; PULSE 78; RESP 18; O2SAT 99
[2018-12-10] MEDS ORDERED: Lidocaine 5% Patch TD SCH (10:00)
== END 2018-12-10 09:57 | disposition home or self-care (01) ==
LOC: ED 05:43
DX: M51.26 Other intervertebral disc displacement, lumbar region (principal); R11.2 Nausea with vomiting, unspecified
CPT/HCPCS: 80053; 81025; 83735; 84443; 85025; 96361; 96374; 96375; 99284; J1885; J2270; J2405; J2765; J7030

== ENCOUNTER 2018-12-26 12:37 | Outpatient (CLI) | payer OTHER | END 2018-12-26 12:38 | disposition home or self-care (01) | LOC: RAD 12:37 ==

== ENCOUNTER 2019-01-16 11:42 | Day surgery (SDC) | payer OTHER ==
[2019-01-08 11:27] VITALS: BMI 24.7
[2019-01-16 12:32] VITALS: RESP 18
[2019-01-16] MEDS ORDERED: Midazolam 2 MG/2 ML VIAL ONE (13:01)
[2019-01-16] MEDS ORDERED: Succinylcholine 200 mg/10 ml Inj IV ONE (13:01)
[2019-01-16] MEDS ORDERED: Propofol 10 mg/ml Inj (20 ML) ONE ×2 (13:01→13:34)
[2019-01-16] MEDS ORDERED: Methylene Blue 10 mg/mL(10ml) IV ONE (13:21)
[2019-01-16] MEDS ORDERED: Bupivacaine 0.5% 50 ML IJ ONE ×2 (13:22→15:27)
[2019-01-16] MEDS ORDERED: Bupivacaine Liposomal Inj 20 ml ONE (13:22)
[2019-01-16] MEDS ORDERED: Heparin 10,000 Units/ml ONE (13:22)
[2019-01-16] MEDS ORDERED: Rocuronium 10 mg/ml (5 ml) ONE (13:47)
[2019-01-16] MEDS ORDERED: Desflurane Inhalation Anesthetic Liq (240 ml) ONE (14:00)
[2019-01-16] MEDS ORDERED: ePHEDrine 50 mg/ml Inj ONE (14:04)
[2019-01-16] MEDS ORDERED: Phenylephrine 10 mg/ml Inj ONE (14:05)
[2019-01-16] MEDS ORDERED: Esmolol 100 mg/10ml Inj IV ONE (14:07)
[2019-01-16] MEDS ORDERED: Neostigmine Methylsulfate 3mg/3ml Syringe IV ONE (14:09)
[2019-01-16] MEDS ORDERED: HYDROmorphone 0.5 mg/0.5 ml ISec IVP ONE ×4 (15:10→16:35)
[2019-01-16] MEDS ORDERED: HYDROmorphone 0.5 mg/0.5 ml ISec ONE ×3 (15:11→16:18)
[2019-01-16] MEDS ORDERED: HYDROmorphone 0.5 mg/0.5 ml ISec IVP PRN (15:11)
[2019-01-16] MEDS ORDERED: Oxycodone/Acetaminophen 5/325 mg Tab PO PRN (15:12)
[2019-01-16] MEDS ORDERED: Lactated Ringer's 1,000 ML IV SCH (15:15)
[2019-01-16] MEDS ORDERED: HYDROmorphone 1 mg/ml ISec IVP PRN (15:32)
[2019-01-16] MEDS ORDERED: HYDROmorphone 1 mg/ml ISec IVP ONE ×2 (15:40→15:55)
[2019-01-16] MEDS ORDERED: HYDROmorphone 1 mg/ml ISec ONE (15:55)
[2019-01-16 17:25] VITALS: PULSE 86; TEMP 97.4; O2SAT 98
[2019-01-16 19:14] VITALS: BP 98/60
--- NOTE | 2019-01-18 15:06 | OP ---
PROCEDURE DATE: 01/16/2019 PREOPERATIVE DIAGNOSES: Pelvic pain, history of endometriosis, left ovarian cyst, and cervical stenosis. POSTOPERATIVE DIAGNOSES: Pelvic pain, history of endometriosis, left ovarian cyst, and cervical stenosis and pelvic adhesions, OPERATION PERFORMED: Operative laparoscopy, fulguration of endometrial lesions, lysis of uterine pelvic adhesions, and a LEEP procedure. SURGEON: Kevon Braden MD. ANESTHESIA: General endotracheal. ESTIMATED BLOOD LOSS: Minimal. DESCRIPTION OF PROCEDURE: After a long discussion was held with the patient and her mother regarding the surgery and the entire procedure, all questions were answered and informed consent was signed and the patient was brought into operating room. General endotracheal anesthesia was induced. The patient was prepped and draped in the usual sterile fashion. Examination under anesthesia revealed the patient to have cervical stenosis, uterus was found to be normal size, right and left adnexa were felt to be negative. Weighted speculum was inserted into the vaginal vault. The anterior lip of the cervix was visualized and grasped with a single-tooth tenaculum. Using a point cautery tip, a small incision was made in the cervix to allow progressive dilatation. Once the dilatation occurred, a Kroner catheter was inserted. Bladder was catheterized, 70 mL of urine were obtained. Attention was turned to the abdomen where a subumbilical incision was made. It was brought down to the fascia. The fascia was opened up, rectus muscles split, peritoneum was visualized, grasped with 2 hemostats, opened and a blunt port trocar was inserted. Visualization of the pelvic cavity revealed the following. Examination of the pelvis revealed the uterus that was normal size. Uterus was also noted to have a large band which was gluing the fundal portion of the uterus, part of this band was a band coming from the ureters. Examination of the cervical bladder flap revealed the bladder to be adherent to the anterior portion of the uterine body. Uterus was elevated upwards. The right adnexa was noted to be normal, showing a normal size ovary as well as normal fallopian tubes. The posterior broad ligament was cleaned and devoid of any signs of endometriosis. Anterior broad ligament was cleaned and devoid of any signs of endometriosis. The patient's right uterosacral ligament was cleaned devoid of any endometriosis. The patient was noted to have blood seen inside her cul-de-sac. The posterior portion of the uterus revealed multiple endometrial implants. The left ovary revealed a left ovarian cyst. No signs of endometrioma, no signs of endometriosis on the left ovary. The ovarian cyst itself was noted to be approximately 2 x 2 cm in size. Noted to be follicular. Left salpinx was noted to be normal. The left infundibulopelvic ligament revealed no signs of endometriosis. Left quad ligament as well as the left anterior broad ligament revealed no signs of endometriosis. As a note, prior to the procedure, the patient had her areas of pelvic pain marked. Pressing down on those marked areas and observing the inner pelvic contents revealed no visible abnormalities. The patient's appendix was visualized. Midabdominal examination was found to be normal. Upper abdominal examination revealed no signs of [id number] syndrome or other abnormalities. The patient was noted to have a small, developing hernia at the round ligament site insertion. No necessity to repair this at any given time at this timeframe. With second puncture made in the suprapubic area under direct visualization, a fulguration probe was inserted. All areas of endometriosis were fulgurated until the chocolate fluid was expelled. This was irrigated and suctioned dry. No other areas of endometriosis noted. As of note, I believe this patient had stage I to stage II signs of endometriosis. The left ovarian cyst was opened through a cystotomy incision and the ovarian tissue as well as part of the left cystic wall were removed and sent to pathology for examination. Hemostasis was controlled with bursts of monopolar cauterization. The band that the patient had, lifting the uterus itself was cut with LigaSure. Long Endo Kay scissors were used to free up all of the bladder adhesions. The pelvis was thoroughly irrigated with copious amounts of fluid and suctioned dry. Hemostasis was excellent throughout the entire time. The uterus itself was moving freely. Attention was turned to all of the endometriosis sites, none of which were bleeding. The pneumoperitoneum was relieved at this timeframe, 0 Vicryl suture was used to close the fascial incision, 4-0 Monocryl was used to close both skin incisions. Dermabond was applied and Marcaine was inserted. Attention was turned to the cervix. The Kroner catheter was removed using a triangular apple loop small size, a circular LEEP cone biopsy was performed, thus excising the stenosis. Small bursts of monopolar cauterization were used to cauterize the edge of the cervix. Monsel solution was applied. The procedure at this timeframe was terminated. The patient was gently awakened and sent to the recovery room in stable condition. Kevon Braden MD
== END 2019-01-16 19:00 | disposition home or self-care (01) ==
LOC: SDS 11:42
PROVIDERS: ATTEND Obstetrics & Gynecology Gynecology
DX: N80.0 Endometriosis of uterus (principal); N83.02 Follicular cyst of left ovary; N88.2 Stricture and stenosis of cervix uteri; N73.6 Female pelvic peritoneal adhesions (postinfective); R10.2 Pelvic and perineal pain
CPT/HCPCS: 57522; 58660; 84703; 88307; J0330; J1100; J1170 ×2; J1885; J2001; J2250; J2370; J2405; J2704; J2710; J2765; J3010; J7120 ×2